=== PATIENT | female | born 1970 | race Asian ===

== ENCOUNTER 2021-09-11 06:36 | Outpatient (CLI) | payer BC | END 2021-09-11 23:59 | disposition home or self-care (01) | LOC: LAB 06:36 | PROVIDERS: ATTEND Internal Medicine | DX: Z01.812 Encounter for preprocedural laboratory examination (principal); Z20.822 Contact with and (suspected) exposure to COVID-19 ==

== ENCOUNTER 2021-09-11 09:56 | Day surgery (SDC) | payer BC, OTHER ==
[2021-09-11] MEDS ORDERED: PROPOFOL 200 MG/20 ML BOTTLE IV ONE (09:57)
[2021-09-11] MEDS ORDERED: LIDOCAINE-MPF 2% 5 ML VIAL IJ ONE (09:57)
[2021-09-11 10:18] LABS: *BILIRUBIN,URIN NEGATIVE (NEGATIVE); *BLOOD, URINE 1+ (NEGATIVE); *CLARITY,URINE CLEAR (CLEAR); *COLOR,URINE YELLOW (YELLOW); *KETONES,URINE NEGATIVE (NEGATIVE); *UROBILINOGEN,URINE 0.2 E.U./dl (NORMAL); LEUKOCYTE ESTERASE ,URINE NEGATIVE (NEGATIVE); NITRITE, URINE NEGATIVE (NEGATIVE); UGLUCOSE NEGATIVE (NEGATIVE)
[2021-09-11 10:32] LABS: CREATININE 0.6 mg/dL (0.6-1.3); POTASSIUM 3.2 mmol/L (3.5-5.1)
[2021-09-11 10:37] LABS: HEMATOCRIT 41.3 % (31.2-41.9); MEAN CORPUSCULAR HEMOGLOBIN 26.4 uug (24.7-32.8); MEAN CORPUSCULAR VOLUME 80.7 fL (75.5-95.3); PLATELET COUNT (AUTO) 283 K/uL (179-408)
[2021-09-11 10:58] LABS: BILIRUBIN,DIRECT 0.2 mg/dL (0.0-0.2); BILIRUBIN,TOTAL 1.3 mg/dL (0.2-1.0); TOTAL PROTEIN, SERUM 8.9 g/dL (6.4-8.2)
[2021-09-11 11:08] LABS: *URINE HCG, QUAL NEG (NEGATIVE)
[2021-09-11 12:20] LABS: BACTERIA,URINE FEW /HPF (NONE SEEN); RBC,URINE 0-3 /HPF (0-3); SQUAMOUS EPITHELIAL CELL,UR FEW /HPF (NONE SEEN)
== END 2021-09-11 17:25 | disposition home or self-care (01) ==
LOC: DS 09:56
PROVIDERS: ATTEND Internal Medicine Gastroenterology
DX: Z12.11 Encounter for screening for malignant neoplasm of colon (principal); K62.1 Rectal polyp; K64.8 Other hemorrhoids; K63.89 Other specified diseases of intestine; I10 Essential (primary) hypertension; E78.00 Pure hypercholesterolemia, unspecified; Z87.440 Personal history of urinary (tract) infections; Z79.899 Other long term (current) drug therapy; Z98.890 Other specified postprocedural states
CPT/HCPCS: 36415; 45385; 71045; 80048; 80076; 81001; 84703; 85025; 85730; 93005; J3490; J7120; A4217; A4663; J7030